=== PATIENT | female | born 1995 | race Caucasian/White ===

== ENCOUNTER 2022-01-05 14:17 | Emergency (ER) | payer OTHER ==
[2022-01-05 14:37] VITALS: BP 116/82; PULSE 92; TEMP 98.2; BMI 24.0
[2022-01-05] MEDS ORDERED: ACETAMINOPHEN 1000 MG/100 ML BAG IVPB ONE (15:08)
[2022-01-05] MEDS ORDERED: SODIUM CHLORIDE 1,000 ML IV STA (15:08)
[2022-01-05] MEDS ORDERED: METOCLOPRAMIDE HCL INJECTION 10 MG/2 ML VIAL IVPUSH ONE (15:08)
[2022-01-05] MEDS ORDERED: METOCLOPRAMIDE HCL INJECTION 10 MG/2 ML VIAL ONE (15:19)
[2022-01-05] MEDS ORDERED: ACETAMINOPHEN INJECTION 100 ML IVPB ONE (15:23)
== END 2022-01-05 18:20 | disposition home or self-care (01) ==
LOC: JER 14:17
PROC: 3E033GC Introduction of Other Therapeutic Substance into Peripheral Vein, Percutaneous Approach (ICD-10-PCS; principal; 2022-01-05)
DX: G44.319 Acute post-traumatic headache, not intractable (principal)
CPT/HCPCS: 70450-TC; 84703; 99285-25